=== PATIENT | female | born 1985 | race Caucasian/White ===

== ENCOUNTER 2017-09-16 13:36 | Emergency (ER) | payer OTHER ==
[~2017-09-16] VITALS: Ht 157.5 cm; Wt 77.1 kg
[2017-09-16] MEDS ORDERED: IBUPROFEN 800 MG TABLET PO ONE (13:45)
--- NOTE | 2017-09-16 13:50 | NUR ---
Patient discharged to home in stable conditon. Written and verbal after care instructions given. Patient verbalizes understanding of instructions.PT WALKS IN STEADY GAIT.
[2017-09-16] MEDS ORDERED: IBUPROFEN 800 MG TABLET ONE (13:58)
== END 2017-09-16 13:52 | disposition home or self-care (01) ==
LOC: ER 13:36
DX: S40.011A Contusion of right shoulder, initial encounter (principal); S20.229A Contusion of unspecified back wall of thorax, initial encounter; Z88.1 Allergy status to other antibiotic agents; W18.30XA Fall on same level, unspecified, initial encounter; Y93.89 Activity, other specified; Y92.89 Other specified places as the place of occurrence of the external cause; Y99.8 Other external cause status
CPT/HCPCS: A4663